=== PATIENT | female | born 1985 | race African-American/Black ===

== ENCOUNTER 2018-03-14 23:25 | Emergency (ER) | payer MEDICARE, MEDICAID ==
--- NOTE | 2018-03-15 03:05 | RADIOLOGY REPORT (SQ) ---
EXAM DESCRIPTION: FOOT RIGHT COMPLETE CLINICAL HISTORY: 32 years Female, Pain s/p injury COMPARISON: None. Findings: Bones, joints, and soft tissues of the FOOT RIGHT 3V appear intact. IMPRESSION: No acute findings.
[2018-03-15] MEDS ORDERED: COLCHICINE 0.6 MG TABLET PO ONE ×2 (03:18)
[2018-03-15] MEDS ORDERED: INDOMETHACIN 50 MG CAPSULE PO ONE (03:21)
--- NOTE | 2018-03-15 03:21 | ER Document Report ---
ED General - General Chief Complaint: Foot Injury Stated Complaint: FOOT INJURY RIGHT Time Seen by Provider: 03/15/18 01:30 Notes: Patient is 32-year-old female who presents with complaint of gradual worsening pain in her first MTP joint on her right foot. No previous history of gout. She does not remember any trauma or injury to her toe. 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 She denies any fevers or infections. She occasionally drinks alcohol. She occasionally eats meat but does not use frequently. She denies any other complaints at this time. TRAVEL OUTSIDE OF THE [place] IN LAST 30 DAYS: No - Related Data Allergies/Adverse Reactions: No Known Allergies Allergy (Verified 12/18/15 16:29) Past Medical History - Social History Smoking Status: Unknown if Ever Smoked Frequency of alcohol use: None Drug Abuse: None Family History: Reviewed & Not Pertinent Patient has suicidal ideation: No Patient has homicidal ideation: No Renal/ Medical History: Denies: Hx Peritoneal Dialysis Musculoskeltal Medical History: Reports Hx Musculoskeletal Deformity Past Surgical History: Reports: Hx Orthopedic Surgery - spinal fusion x2 - Immunizations Immunizations up to date: Yes Hx Diphtheria, Pertussis, Tetanus Vaccination: Yes Review of Systems - Review of Systems Notes: My Normal Review Basic REVIEW OF SYSTEMS: CONSTITUTIONAL : Denies fever, chills, or sweats. Denies recent illness. MUSCULOSKELETAL: Pain in right first MTP SKIN: Denies rash or skin lesions. NEUROLOGICAL: Denies sensory or motor loss. ALL OTHER SYSTEMS REVIEWED AND NEGATIVE. Physical Exam - Vital signs Vitals: Temp Pulse Resp BP Pulse Ox 98.9 F 94 18 134/99 H 100 03/15/18 01:11 03/15/18 01:11 03/15/18 01:11 03/15/18 01:11 03/15/18 01:11 - Notes Notes: General Appearance: Well nourished, alert, cooperative, no acute distress, no obvious discomfort. Vitals: reviewed, See vital signs table. Extremities: strength 5/5 in all extremities, good pulses in all extremities, pain in the right first metatarsophalangeal joint. No pain in the rest of the foot. Slight swelling to the joint but no redness or warmth. No bruising. Skin: warm, dry, appropriate color, no rash Neuro: speech clear, oriented x 3, normal affect, responds appropriately to questions. Course - Re-evaluation Re-evalutation: 03/15/18 07:05 Based on the location of patient's pain and no actual injury suspect that she could potentially be having gout. I did give her colchicine. I will place her on indomethacin. She is already on chronic pain medicine at home for her back which includes oxycodone therefore do not think she needs any further opiate medication. She has no signs of infection and that it is not red or hot to touch. She has no break in the skin. Encouraged her return to ER if she has increased swelling of the foot, worsening pain in the foot, any redness or warmth to the foot, fevers, or if the pain worsens. Patient agrees with plan will be discharged home. Dictation of this chart was performed using voice recognition software; therefore, there may be some unintended grammatical errors. - Vital Signs Vital signs: Temp Pulse Resp BP Pulse Ox 98 F 79 20 128/98 H 99 03/15/18 03:59 03/15/18 03:59 03/15/18 03:59 03/15/18 03:59 03/15/18 03:59 Discharge - Discharge Clinical Impression: Toe pain Qualifiers: Laterality: right Qualified Code(s): M79.674 - Pain in right toe(s) Condition: Good Disposition: HOME, SELF-CARE Additional Instructions: Please return to the ER immediately if you develop worsening rizzo, fevers, increasing redness or swelling into the foot. Prescriptions: Indomethacin [Indocin 50 Mg Capsule] 50 mg PO Q8 PRN #15 capsule PRN Reason: toe pain Forms: Return to Work Referrals: CAROLYN BELLO MD [Primary Care Provider] - 03/18/18
[2018-03-15 04:00] VITALS: BP 128/98
== END 2018-03-15 04:00 | disposition home or self-care (01) ==
LOC: ER 23:25
DX: M79.674 Pain in right toe(s) (principal); M25.571 Pain in right ankle and joints of right foot; M25.474 Effusion, right foot; G89.29 Other chronic pain; Z79.891 Long term (current) use of opiate analgesic
CPT/HCPCS: 99283; 73630; A9270 ×2; J3490

== ENCOUNTER 2018-09-06 18:54 | Emergency (ER) | payer OTHER, MEDICARE, MEDICAID ==
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
--- NOTE | 2018-09-06 19:47 | RADIOLOGY REPORT (SQ) ---
EXAM DESCRIPTION: CHEST 2 VIEWS COMPLETED DATE/TIME: 09/06/2018 7:37 pm REASON FOR STUDY: pain on right side chest COMPARISON: 08/14/2016 EXAM PARAMETERS: NUMBER OF VIEWS: two views TECHNIQUE: Digital Frontal and Lateral radiographic views of the chest acquired. RADIATION DOSE: NA LIMITATIONS: none FINDINGS: LUNGS AND PLEURA: No opacities, masses or pneumothorax. No pleural effusion. MEDIASTINUM AND HILAR STRUCTURES: No masses or contour abnormalities. HEART AND VASCULAR STRUCTURES: Heart normal size. No evidence for failure. BONES: Partially imaged Wolff rods fractured at the thoracolumbar junction are unchanged relativ e to CT imaging performed 08/14/2016. S-shaped scoliotic curvature persists. HARDWARE: None in the chest. OTHER: No other significant finding. IMPRESSION: NO ACUTE RADIOGRAPHIC FINDING IN THE CHEST. TECHNICAL DOCUMENTATION: JOB ID: [id number] [employer]- All Rights Reserved Reading location - IP/workstation name: [email or web address]
[2018-09-06 20:34] VITALS: BP 131/92
== END 2018-09-06 20:25 | disposition home or self-care (01) ==
LOC: ER 18:54
DX: S46.911A Strain of unspecified muscle, fascia and tendon at shoulder and upper arm level, right arm, initial encounter (principal); S20.211A Contusion of right front wall of thorax, initial encounter; M25.511 Pain in right shoulder; M41.9 Scoliosis, unspecified; G89.29 Other chronic pain; V03.00XA Pedestrian on foot injured in collision with car, pick-up truck or van in nontraffic accident, initial encounter; F17.210 Nicotine dependence, cigarettes, uncomplicated
CPT/HCPCS: 71046; 99283

== ENCOUNTER 2019-06-22 02:11 | Outpatient (CLI) | payer MEDICARE, MEDICAID ==
[2019-06-22 04:49] LABS: APPEARANCE,URINE SLIGHTLY-CLOUDY; BILIRUBIN,URINE NEGATIVE (NEGATIVE); COLOR,URINE YELLOW; GLUCOSE, URINE NEGATIVE (NEGATIVE); KETONES,URINE NEGATIVE (NEGATIVE); LEUKOCYTE ESTERASE,URINE NEGATIVE (NEGATIVE); NITRITE,URINE NEGATIVE (NEGATIVE); PROTEIN,URINE 100 mg/dL (NEGATIVE); URINE SPECIFIC GRAVITY 1.019; UROBILINOGEN,URINE NEGATIVE mg/dL (<2.0)
[2019-06-22 05:02] LABS: URINE AMPHETAMINES SCREEN NEGATIVE; URINE BARBITURATES SCREEN NEGATIVE; URINE BENZODIAZEPINES SCREEN NEGATIVE; URINE COCAINE SCREEN NEGATIVE; URINE MARIJUANA (THC) SCREEN NEGATIVE; URINE METHADONE SCREEN NEGATIVE; URINE PHENCYCLIDINE SCREEN NEGATIVE
--- NOTE | 2019-06-22 05:03 | RADIOLOGY REPORT (SQ) ---
CLINICAL HISTORY: trauma COMPARISON: None. TECHNIQUE: US LIMITED on 06/22/2019 12:00 AM CDT FINDINGS: The cervix measures 3.6 cm and is closed. Fetus is in breech position. STEFFANY is normal at 5.6 cm. heart rate is 165 bpm. Placenta is posterior and is unremarkable. IMPRESSION: No acute findings.
== END 2019-06-22 05:25 | disposition home or self-care (01) ==
LOC: LC 02:11
PROVIDERS: ATTEND Obstetrics & Gynecology
PROC: 4A1HXCZ Monitoring of Products of Conception, Cardiac Rate, External Approach (ICD-10-PCS; principal; 2019-06-22)
DX: O36.8120 Decreased fetal movements, second trimester, not applicable or unspecified (principal); O99.332 Smoking (tobacco) complicating pregnancy, second trimester; F17.210 Nicotine dependence, cigarettes, uncomplicated; Z3A.22 22 weeks gestation of pregnancy
CPT/HCPCS: 59899; 86900; 86901; 36415; 86850; 81001; 80307; 76815; J2790

== ENCOUNTER 2020-12-04 23:26 | Emergency (ER) | payer MEDICAID, MEDICARE ==
--- NOTE | 2020-12-04 23:56 | ER Document Report ---
ED Medical Screen (RME) - General Chief Complaint: Vomiting Stated Complaint: VOMITING Time Seen by Provider: 12/04/20 23:51 Primary Care Provider: ZARINA CHIN MD [Primary Care Provider] - Follow up as needed TRAVEL OUTSIDE OF THE [place] IN LAST 30 DAYS: No - HPI Patient complains to provider of: Vomiting Notes: 12/04/20 23:55 Patient with complaints of vomiting. The patient states that she vomited a few days ago and it was a rather hard vomit. She states that this evening she vomited hard again which was just food. After this she states that she vomited up some bright red blood. She has had no vomiting since that time. She denies any current pain. She denies any blood thinning medications. She denies any diarrhea. No fever. No injury. She denies drinking alcohol, NSAID use or aspirin use. No other specific complaints. Exam: Nontoxic, no distress. Lungs clear and equal throughout. Heart sounds normal. No focal abdominal tenderness on limited triage abdominal exam. An initial examination was made on the patient as part of the triage process, and it was determined a more comprehensive evaluation was necessary. Initial orders were placed and patient was transferred to another provider in the ED who assumed care and finished evaluation and plan. - Related Data Allergies/Adverse Reactions: latex Allergy (Verified 12/04/20 23:49) Past Medical History Renal/ Medical History: Denies: Hx Peritoneal Dialysis Musculoskeltal Medical History: Reports Hx Musculoskeletal Deformity Past Surgical History: Reports: Hx Orthopedic Surgery - spinal fusion x2 - Immunizations Immunizations up to date: Yes Hx Diphtheria, Pertussis, Tetanus Vaccination: Yes Physical Exam - Vital signs Vitals: Temp Pulse Resp BP Pulse Ox 98.3 F 75 17 136/81 H 100 12/04/20 23:33 12/04/20 23:33 12/04/20 23:33 12/04/20 23:33 12/04/20 23:33 Course - Vital Signs Vital signs: Temp Pulse Resp BP Pulse Ox 98.3 F 75 17 136/81 H 100 12/04/20 23:33 12/04/20 23:33 12/04/20 23:33 12/04/20 23:33 12/04/20 23:33 Doctor's Discharge - Discharge Referrals: ZARINA CHIN MD [Primary Care Provider] - Follow up as needed
--- NOTE | 2020-12-05 00:09 | ER Document Report ---
Doctor's Note Notes: 12/05/20 00:09 Labs ordered to expedite patient care, patient waiting for full treating provider evaluation.
[2020-12-05 00:25] LABS: ABSOLUTE BASOPHILS # (AUTO) 0.1 10^3/uL (0.0-0.2); ABSOLUTE EOSINOPHILS # (AUTO) 0.2 10^3/uL (0.0-0.6); ABSOLUTE LYMPHOCYTES (AUTO) 2.8 10^3/uL (0.5-4.7); ABSOLUTE MONOCYTES (AUTO) 0.3 10^3/uL (0.1-1.4); ABSOLUTE NEUT (AUTO) 4.5 10^3/uL (1.7-8.2); BASOPHILS % (AUTO) 0.9 % (0-2); EOSINOPHILS % (AUTO) 2.4 % (0-6); HEMATOCRIT 43.4 % (36.0-47.0); HEMOGLOBIN 14.9 g/dL (12.0-15.5); LYMPHOCYTES % (AUTO) 35.4 % (13-45); MEAN CORPUSCULAR HEMOGLOBIN 30.7 pg (27.0-33.4); MEAN CORPUSCULAR HGB CONC 34.4 g/dL (32.0-36.0); MEAN CORPUSCULAR VOLUME 89 fl (80-97); MONOCYTES % (AUTO) 4.2 % (3-13); PLATELET COUNT 272 10^3/uL (150-450); RED BLOOD COUNT 4.85 10^6/uL (3.72-5.28); RED CELL DISTRIBUTION WIDTH 12.6 % (11.5-14.0); SEGMENTED NEUTROPHILS % (AUTO) 57.1 % (42-78); TOTAL CELLS COUNTED % (AUTO) 100 %; WHITE BLOOD COUNT 7.9 10^3/uL (4.0-10.5)
[2020-12-05 00:29] LABS: APPEARANCE,URINE SLIGHTLY-CLOUDY; BILIRUBIN,URINE NEGATIVE (NEGATIVE); COLOR,URINE YELLOW; GLUCOSE, URINE NEGATIVE (NEGATIVE); KETONES,URINE NEGATIVE (NEGATIVE); LEUKOCYTE ESTERASE,URINE TRACE (NEGATIVE); NITRITE,URINE NEGATIVE (NEGATIVE); PROTEIN,URINE >=500 mg/dL (NEGATIVE); URINE SPECIFIC GRAVITY 1.026; UROBILINOGEN,URINE NEGATIVE mg/dL (<2.0)
[2020-12-05 00:43] LABS: ALBUMIN 4.4 g/dL (3.5-5.0); ALKALINE PHOSPHATASE 78 U/L (38-126); ANION GAP 5 (5-19); ASPARTATE AMINO TRANSFERASE 22 U/L (14-36); BILIRUBIN,DIRECT 0.3 mg/dL (0.0-0.4); BILIRUBIN,TOTAL 0.6 mg/dL (0.2-1.3); BLOOD UREA NITROGEN 15 mg/dL (7-20); CALCIUM 9.8 mg/dL (8.4-10.2); CARBON DIOXIDE 32 mmol/L (22-30); CHLORIDE 104 mmol/L (98-107); GLUCOSE 98 mg/dL (75-110); POTASSIUM 4.3 mmol/L (3.6-5.0); TOTAL PROTEIN 7.6 g/dL (6.3-8.2)
--- NOTE | 2020-12-05 02:49 | RADIOLOGY REPORT (SQ) ---
EXAM DESCRIPTION: XR ABDOMEN 1 VIEW (KUB) COMPLETED DATE/TME: 12/05/2020 02:20 CLINICAL HISTORY: 35 years, Female, Vomited blood COMPARISON: CT 08/14/2016 NUMBER OF VIEWS: 1 TECHNIQUE: AP abdomen LIMITATIONS: None. FINDINGS: Osteopenia. Postsurgical change of the thoracolumbar spine with fracture lines through the fixation rods as before. The bowel gas pattern is nonspecific. Evaluation for free air limited on a supine view. IMPRESSION: Nonspecific bowel gas pattern copyright 2010 [employer]- All Rights Reserved
[2020-12-05 06:53] VITALS: BP 130/76
--- NOTE | 2020-12-05 10:14 | ER Document Report ---
Entered by VONDA VERA SCRIBE 12/05/20 0616 Acting as scribe for:KAYA JOYCE MD ED GI/ - General Chief Complaint: Vomiting Stated Complaint: VOMITING Time Seen by Provider: 12/04/20 23:51 Primary Care Provider: ZARINA CHIN MD [ACTIVE STAFF] - Follow up as needed Mode of Arrival: Ambulatory Information source: Patient Notes: This 35 year old female patient presents to the ED today with complaints of an episode of hematemsis that occurred around 2150 last night. Patient states that she took her Percocet 10 mg Q4-6 hrs before eating and vomited. She states that she noticed bright red blood in the toilet. The picture she presented of the emesis showed bright red blood in the water and on the edge of the toilet. Denies vomiting since then. She reports that this is the first time this has happened after taking her pain medications prescribed for her chronic back pain. She also notes right-sided rib pain for the past few days that she has not taken any NSAIDs for. She states that it hurts with certain movements. Denies p gilbert. She recently moved back to [place] and has PCP in [place], but she is in the process of establishing a local PCP. TRAVEL OUTSIDE OF THE [place] IN LAST 30 DAYS: No - Related Data Allergies/Adverse Reactions: latex Allergy (Verified 12/04/20 23:49) Home Medications: PERCOCET (CHRONIC BACK PAIN) Past Medical History - General Information source: Patient - Social History Smoking Status: Current Every Day Smoker Cigarette use (# per day): Yes - 6 cigarettes pd Chew tobacco use (# tins/day): No Smoking Education Provided: No Frequency of alcohol use: None Drug Abuse: Marijuana Family History: Reviewed & Not Pertinent Musculoskeletal Medical History: Reports Hx Musculoskeletal Deformity Past Surgical History: Reports: Hx Orthopedic Surgery - spinal fusion x2 - Immunizations Immunizations up to date: Yes Hx Diphtheria, Pertussis, Tetanus Vaccination: Yes Review of Systems - Review of Systems Constitutional: No symptoms reported EENT: No symptoms reported Cardiovascular: No symptoms reported Respiratory: No symptoms reported Gastrointestinal: See HPI, Nausea, Vomiting, Blood in vomit Genitourinary: No symptoms reported Female Genitourinary: See HPI. denies: Musculoskeletal: See HPI, Muscle pain Skin: No symptoms reported Hematologic/Lymphatic: No symptoms reported Neurological/Psychological: No symptoms reported -: Yes All other systems reviewed and negative Physical Exam - Vital signs Vitals: Temp Pulse Resp BP Pulse Ox 98.3 F 75 17 136/81 H 100 12/04/20 23:33 12/04/20 23:33 12/04/20 23:33 12/04/20 23:33 12/04/20 23:33 - General General appearance: Appears well, Alert In distress: None - HEENT Head: Normocephalic, Atraumatic Eyes: Normal Extraocular movements intact: Yes Pupils: PERRL Neck: Normal, Supple - Respiratory Respiratory status: No respiratory distress Chest status: Nontender Breath sounds: Normal Chest palpation: Tender - Right anterior inferior ribs are tender to palpate. - Cardiovascular Rhythm: Regular Heart sounds: Normal auscultation Murmur: No - Abdominal Inspection: Normal Distension: No distension Bowel sounds: Normal Tenderness: Nontender - Epigastric and RUQ are nontender to palpate. Abdomen soft Organomegaly: No organomegaly - Back Back: Normal, Nontender - Extremities General upper extremity: Normal inspection General lower extremity: Normal inspection. No: Edema - Neurological Neuro grossly intact: Yes Orientation: AAOx4 [place] Coma Scale Eye Opening: Spontaneous [place] Coma Scale Verbal: Oriented Rosa Coma Scale Motor: Obeys Commands [place] Coma Scale Total: 15 - Psychological Associated symptoms: Normal affect, Normal mood - Skin Skin Temperature: Warm Skin Moisture: Dry Skin Color: Normal Course - Vital Signs Vital signs: Temp Pulse Resp BP Pulse Ox 98.0 F 71 16 130/76 H 100 12/05/20 06:52 12/05/20 06:52 12/05/20 06:52 12/05/20 06:52 12/05/20 06:52 - Laboratory Results Result Diagrams: 12/05/20 00:11 12/05/20 00:11 Laboratory Results Interpreted: 12/05/20 12/05/20 00:11 00:11 Carbon Dioxide 32 H Creatinine 1.33 H Est GFR ( Amer) 56 L Est GFR (MDRD) Non-Af 46 L Urine Protein >=500 H Ur Leukocyte Esterase TRACE H Critical Laboratory Results Reviewed: No Critical Results - Radiology Results Critical Radiology Results Reviewed: No Critical Results Discharge - Discharge Clinical Impression: Hematemesis without nausea, Susan-Machado tear Rib sprain Qualifiers: Encounter type: initial encounter Qualified Code(s): S23.41XA - Sprain of ribs, initial encounter Condition: Stable Disposition: HOME, SELF-CARE Additional Instructions: Your history and physical suggest that you had an episode of vomiting bright red blood, probably caused by what is known as a Susan-Machado tear of the distal esophagus. You should stay on a soft bland diet for the next several days. Take Prilosec OTC once daily for the next week. Try to avoid activity that make the ribs on the right side hurt worse. Follow-up with a local primary care provider if not improving. RETURN TO THE EMERGENCY ROOM IF ANY NEW OR WORSENING SYMPTOMS. Referrals: ZARINA CHIN MD [ACTIVE STAFF] - Follow up as needed I personally performed the services described in the documentation, reviewed and edited the documentation which was dictated to the scribe in my presence, and it accurately records my words and actions.
== END 2020-12-05 06:51 | disposition home or self-care (01) ==
LOC: ER 23:26
DX: S23.41XA Sprain of ribs, initial encounter (principal); X58.XXXA Exposure to other specified factors, initial encounter; K22.6 Gastro-esophageal laceration-hemorrhage syndrome; K92.0 Hematemesis; F17.210 Nicotine dependence, cigarettes, uncomplicated; Z91.040 Latex allergy status; Z98.1 Arthrodesis status
CPT/HCPCS: 36415; 74018; 80053; 81001; 81025; 83690; 84703; 85025; 99283